=== PATIENT | female | born 1975 | race Two or more races ===

== ENCOUNTER 2023-09-05 04:49 | Emergency (ER) | payer MEDICARE, OTHER ==
[~2023-09-05] VITALS: Ht 165.1 cm; Wt 84.0 kg
[2023-09-05 06:06] LABS: BASOPHILS % (AUTO) 0.4 % (0.0-2.0); EOSINOPHILS % (AUTO) 1.6 % (1.0-6.0); HEMATOCRIT 36.1 % (36-46); HEMOGLOBIN 12.5 g/dL (12.0-16.0); LYMPHOCYTES # (AUTO) 1.5 K/uL (1.0-4.8); LYMPHOCYTES % (AUTO) 23.9 % (22.0-44.0); MEAN CORPUSCULAR HEMOGLOBIN 34.9 pg (26.0-34.0); MEAN CORPUSCULAR HGB CONC 34.7 G/dL (31.0-37.0); MEAN CORPUSCULAR VOLUME 101 fL (80-100); MONOCYTES # (AUTO) 0.5 K/uL (0.1-1.0); MONOCYTES % (AUTO) 7.4 % (2.0-9.0); NEUTROPHILS # (AUTO) 4.2 K/uL (1.8-7.7); NEUTROPHILS % (AUTO) 66.7 % (40.0-70.0); PLATELET COUNT (AUTO) 221 K/uL (150-450); RED BLOOD CELL COUNT(AUTO) 3.59 MIL/uL (4.00-5.20); RED CELL DISTRIBUTION WIDTH 12.9 % (11.5-14.5); WHITE BLOOD COUNT (AUTO) 6.3 K/uL (4.5-11.0)
[2023-09-05 06:18] LABS: ANION GAP 7 mmol/L (8-16); CARBON DIOXIDE 31 mmol/L (22-29); CHLORIDE 103 mmol/L (98-107); CREATININE 0.43 mg/dL (0.60-1.30); GLOMERULAR FILTR. RATE CALC > 60 mL/min (>60); GLUCOSE,RANDOM 93 mg/dL (70-110); POTASSIUM 3.9 mmol/L (3.5-5.1); SODIUM SERUM 141 mmol/L (136-145); UREA NITROGEN, BLOOD 18 mg/dL (7-18)
[2023-09-05 06:26] LABS: ALANINE AMINOTRANSFERASE 61 U/L (12-78); ALBUMIN 3.8 g/dL (3.4-5.0); ALKALINE PHOSPHATASE 49 U/L (46-116); ASPARTATE AMINOTRANSFERASE 44 U/L (15-37); BILIRUBIN,TOTAL 0.2 mg/dL (0.1-1.0); TOTAL PROTEIN, SERUM 6.9 g/dL (6.4-8.2)
[2023-09-05] MEDS: KETOROLAC TROMETHAMINE 60 MG/2 ML VIAL IM ONE (06:31)
[2023-09-05] MEDS: METHOCARBAMOL 500 MG TABLET PO ONE (06:31)
[2023-09-05 06:38] VITALS: TEMP 98.4
[2023-09-05] MEDS: OxyCODONE HCL/ACETAMINOPHEN 5-325 MG TABLET PO ONE (08:20)
[2023-09-05] MEDS: ONDANSETRON HCL 4 MG TABLET PO ONE (08:20)
[2023-09-05] MEDS ORDERED: PERCT PO (08:28)
[2023-09-05] MEDS ORDERED: IBUP-1492 PO (08:28)
[2023-09-05] MEDS ORDERED: METH-659 PO (08:28)
[2023-09-05 08:30] VITALS: BP 145/80; PULSE 70; RESP 14
== END 2023-09-05 08:44 | disposition home or self-care (01) ==
LOC: EMS 04:51
DX: R51.9 Headache, unspecified (principal)
CPT/HCPCS: 99285; 70450; 80053; 85025; 36415; 96372; J1885; Q0162